=== PATIENT | female | born 1990 ===

== ENCOUNTER 2021-04-12 05:00 | Day surgery (SDC) | payer OTHER ==
[~2021-04-12 05:00] MED LIST: SINGULAIR10 MG PO
== END 2021-04-12 13:50 | disposition home or self-care (01) ==
LOC: CIR.AMB 05:00
PROVIDERS: ATTEND Specialist
DX: K80.00 Calculus of gallbladder with acute cholecystitis without obstruction (principal); Z20.822 Contact with and (suspected) exposure to COVID-19